=== PATIENT | female | born 1985 | race Caucasian/White ===

== ENCOUNTER 2021-05-15 16:33 | Emergency (ER) | payer OTHER ==
[~2021-05-15] VITALS: Ht 160 cm; Wt 90.9 kg
[2021-05-15 18:04] LABS: COVID AG,FIA SOURCE NASOPHARYNGEAL
[2021-05-15 19:15] VITALS: BP 125/72
== END 2021-05-15 19:41 ==
LOC: EMS 16:36
DX: R05 Cough (principal); Z20.822 Contact with and (suspected) exposure to COVID-19
CPT/HCPCS: 87426; 99283; U0003